=== PATIENT | male | born 1970 | race Caucasian/White ===

== ENCOUNTER 2024-04-08 09:06 | Outpatient (CLI) | payer OTHER, MEDICAID | END 2024-04-08 09:07 | disposition home or self-care (01) | LOC: CSHSPEC 09:06 | PROVIDERS: ATTEND Pediatrics | DX: Z01.818 Encounter for other preprocedural examination (principal); M47.22 Other spondylosis with radiculopathy, cervical region; Z95.810 Presence of automatic (implantable) cardiac defibrillator; M48.02 Spinal stenosis, cervical region; Q76.49 Other congenital malformations of spine, not associated with scoliosis | CPT/HCPCS: 71045; 72141 ==

== ENCOUNTER 2024-12-01 09:37 | Outpatient (CLI) | payer OTHER | END 2024-12-01 09:38 | disposition home or self-care (01) | LOC: CSHULT 09:37 | PROVIDERS: ATTEND Internal Medicine Nephrology | DX: N18.32 Chronic kidney disease, stage 3b (principal) | CPT/HCPCS: 76770 ==